=== PATIENT | female | born 1975 | race Caucasian/White ===

== ENCOUNTER 2017-03-28 00:01 | Emergency (ER) | payer OTHER ==
[~2017-03-28] VITALS: Ht 170.2 cm; Wt 90.5 kg
[~2017-03-28 00:01] MED LIST: HUMALOG; HUMOLOG; HUMULIN; HUMULIN R; METF500T7 PO; PNV1CAPS42 PO
[2017-03-28 00:18] LABS: GLUCOSE,POINT OF CARE 114 MG/DL (70-110)
[2017-03-28] MEDS ORDERED: ALBUTEROL SULFATE 5 MG/ML 20 ML NEB SOLN [BULK] NEB ONE (00:30)
[2017-03-28] MEDS ORDERED: IPRATROPIUM BROMIDE 0.5 MG/2.5 ML NEB SOLUTION NEB ONE (00:30)
[2017-03-28] MEDS ORDERED: 0.9% SODIUM CHLORIDE 15 ML NEB SOLUTION NEB ONE (00:33)
[2017-03-28 00:34] LABS: BASOPHILS % (AUTO) 0.7 % (0.0-2.0); EOSINOPHILS % (AUTO) 3.5 % (1.0-6.0); HEMATOCRIT 42.5 % (36-46); HEMOGLOBIN 14.3 g/dL (12.0-16.0); LYMPHOCYTES # (AUTO) 4.2 K/uL (1.0-4.8); LYMPHOCYTES % (AUTO) 24.3 % (22.0-44.0); MEAN CORPUSCULAR HGB CONC 33.6 G/dL (31.0-37.0); MEAN CORPUSCULAR VOLUME 95 fL (80-100); MONOCYTES # (AUTO) 0.6 K/uL (0.1-1.0); MONOCYTES % (AUTO) 3.4 % (2.0-9.0); NEUTROPHILS # (AUTO) 11.8 K/uL (1.8-7.7); NEUTROPHILS % (AUTO) 68.1 % (40.0-70.0); PLATELET COUNT (AUTO) 361 K/uL (150-450); RED BLOOD CELL COUNT(AUTO) 4.47 MIL/uL (4.00-5.20); RED CELL DISTRIBUTION WIDTH 14.1 % (11.5-14.5); WHITE BLOOD COUNT (AUTO) 17.3 K/uL (4.5-11.0)
[2017-03-28] MEDS ORDERED: 0.9% SODIUM CHLORIDE 5 ML NEB SOLUTION NEB ONE (00:47)
[2017-03-28 00:48] LABS: ANION GAP 6 mmol/L (8-16); CALCIUM, TOTAL 8.7 mg/dL (8.8-10.5); CARBON DIOXIDE 29 mmol/L (22-29); CHLORIDE 102 mmol/L (98-107); CREATININE 0.95 mg/dL (0.60-1.30); GLOMERULAR FILTR. RATE CALC > 60 mL/min (>60); POTASSIUM 3.8 mmol/L (3.5-5.1); SODIUM SERUM 137 mmol/L (136-145); UREA NITROGEN, BLOOD 9 mg/dL (7-18)
[2017-03-28 00:54] LABS: ALANINE AMINOTRANSFERASE 25 U/L (12-78); ALBUMIN 3.4 g/dL (3.4-5.0); ASPARTATE AMINOTRANSFERASE 17 U/L (15-37); BILIRUBIN,TOTAL 0.4 mg/dL (0.1-1.0); TOTAL PROTEIN, SERUM 7.6 g/dL (6.4-8.2)
[2017-03-28] MEDS ORDERED: ALBUTEROL SULFATE HFA 90 MCG/PUFF 8 GM INHALER IH ONE (03:30)
[2017-03-28] MEDS ORDERED: AZITHROMYCIN 250 MG TABLET PO ONE (03:30)
[2017-03-28 03:56] VITALS: BP 144/95
== END 2017-03-28 04:01 | disposition home or self-care (01) ==
LOC: EMS 00:04
DX: J18.9 Pneumonia, unspecified organism (principal); E11.9 Type 2 diabetes mellitus without complications; I10 Essential (primary) hypertension; F17.210 Nicotine dependence, cigarettes, uncomplicated; Z88.1 Allergy status to other antibiotic agents
CPT/HCPCS: 36415; 71020; 80053; 82962; 84703; 85025; 94644; 99285; 99406; J7611; J3535

== ENCOUNTER 2017-04-12 22:06 | Inpatient (IN) | payer OTHER ==
[~2017-04-12] VITALS: Ht 170.2 cm; Wt 117.4 kg
[2017-04-12 22:46] LABS: BASOPHILS % (AUTO) 0.4 % (0.0-2.0); EOSINOPHILS % (AUTO) 3.3 % (1.0-6.0); HEMATOCRIT 35.8 % (36-46); HEMOGLOBIN 11.9 g/dL (12.0-16.0); LYMPHOCYTES # (AUTO) 2.8 K/uL (1.0-4.8); MEAN CORPUSCULAR HEMOGLOBIN 31.6 pg (26.0-34.0); MEAN CORPUSCULAR HGB CONC 33.2 G/dL (31.0-37.0); MEAN CORPUSCULAR VOLUME 95 fL (80-100); MONOCYTES # (AUTO) 0.6 K/uL (0.1-1.0); MONOCYTES % (AUTO) 4.5 % (2.0-9.0); NEUTROPHILS # (AUTO) 10.1 K/uL (1.8-7.7); NEUTROPHILS % (AUTO) 71.8 % (40.0-70.0); PLATELET COUNT (AUTO) 337 K/uL (150-450); RED BLOOD CELL COUNT(AUTO) 3.76 MIL/uL (4.00-5.20); RED CELL DISTRIBUTION WIDTH 14.7 % (11.5-14.5)
[2017-04-12 22:56] LABS: PROTHROMBIN TIME 10.9 SEC (9.4-11.6)
[2017-04-12] MEDS ORDERED: ALBUTEROL SULFATE 2.5 MG/0.5 ML NEB SOLUTION NEB ONE (23:10)
[2017-04-12 23:15] LABS: CALCIUM, TOTAL 8.6 mg/dL (8.8-10.5); CREATININE 1.17 mg/dL (0.60-1.30); POTASSIUM 3.7 mmol/L (3.5-5.1)
[2017-04-12] MEDS ORDERED: MORPHINE SULFATE 4 MG/ML SYRINGE IVP ONE (23:15)
[2017-04-12] MEDS ORDERED: ONDANSETRON HCL 4 MG/2 ML VIAL IVP ONE (23:15)
[2017-04-12 23:21] LABS: ALBUMIN 3.1 g/dL (3.4-5.0); BILIRUBIN,TOTAL 0.4 mg/dL (0.1-1.0); TOTAL PROTEIN, SERUM 7.4 g/dL (6.4-8.2)
[2017-04-12] MEDS ORDERED: HYDROCODONE/ACETAMINOPHEN 5-325 MG TABLET PO ONE (23:30)
[2017-04-13] MEDS ORDERED: CefTRIAXone 1 GM/DEXTROSE 50 ML IV ONE (00:45)
[2017-04-13] MEDS ORDERED: AZITHROMYCIN 500 MG/NS 250 ML IV ONE (00:45)
[2017-04-13] MEDS ORDERED: FUROSEMIDE 40 MG/4 ML VIAL IVP ONE (00:45)
[2017-04-13] MEDS ORDERED: ACETAMINOPHEN 325 MG TABLET PO PRN ×2 (01:30→05:45)
[2017-04-13] MEDS ORDERED: 0.9% SODIUM CHLORIDE 10 ML SYRINGE IVP PRN ×2 (01:30→05:45)
[2017-04-13] MEDS ORDERED: ONDANSETRON HCL 4 MG/2 ML VIAL IVP PRN ×2 (01:30→05:45)
[2017-04-13 01:46] LABS: APPEARANCE,URINE CLEAR (CLEAR); GLUCOSE, URINE (UA) >=1000 mg/dL (NEGATIVE); KETONES,URINE NEGATIVE (NEGATIVE); LEUKOCYTE ESTERASE ,URINE NEGATIVE (NEGATIVE); OCCULT BLOOD,URINE NEGATIVE (NEGATIVE); PROTEIN,URINE POS 1+ (NEGATIVE)
[2017-04-13 01:57] LABS: RBC,URINE None Seen /HPF (0-2); WBC,URINE None Seen /HPF (0-5)
[2017-04-13] MEDS ORDERED: MAGNESIUM HYDROXIDE SUSPENSION 30 ML UDCUP PO PRN (05:45)
[2017-04-13] MEDS ORDERED: OxyCODONE HCL/ACETAMINOPHEN 5-325 MG TABLET PO PRN ×2 (05:45)
[2017-04-13 08:24] VITALS: BP 145/106
[2017-04-13] MEDS: PANTOPRAZOLE SODIUM 40 MG/VIAL IVP SCH (08:59)
[2017-04-13] MEDS: DOCUSATE SODIUM 100 MG CAPSULE PO SCH ×2 (08:59→20:24)
[2017-04-13] MEDS: FUROSEMIDE 40 MG/4 ML VIAL IVP SCH (08:59)
[2017-04-13] MEDS ORDERED: INFLUENZA VIRUS VACCINE QVS 2017-18 (3YR+)/PF 60 MCG/0.5 ML SYRINGE IM ONE (10:45)
[2017-04-13 12:07] VITALS: BP 154/98
[2017-04-13] MEDS ORDERED: ALBUTEROL SULFATE 2.5 MG/0.5 ML NEB SOLUTION NEB PRN (14:45)
[2017-04-13] MEDS: MethylPREDNISolone SOD SUCC 125 MG/2 ML VIAL IVP SCH (14:57)
[2017-04-13 15:53] VITALS: BP 147/112
[2017-04-13] MEDS: ALBUTEROL SULFATE 2.5 MG/0.5 ML NEB SOLUTION NEB SCH ×3 (15:53→22:44)
[2017-04-13] MEDS: IPRATROPIUM BROMIDE 0.5 MG/2.5 ML NEB SOLUTION NEB SCH ×3 (15:53→22:44)
[2017-04-13 20:38] VITALS: BP 152/96
[2017-04-13 20:47] LABS: INFLUENZA TYPE B NEGATIVE FOR TYPE B (NEGATIVE)
[2017-04-13] MEDS ORDERED: FUROSEMIDE 20 MG/2 ML VIAL IVP ONE (21:00)
[2017-04-14] MEDS: MethylPREDNISolone SOD SUCC 125 MG/2 ML VIAL IVP SCH ×3 (00:07→17:33)
[2017-04-14 00:44] VITALS: BP 149/94
[2017-04-14] MEDS: ALBUTEROL SULFATE 2.5 MG/0.5 ML NEB SOLUTION NEB SCH ×6 (02:57→22:32)
[2017-04-14] MEDS: IPRATROPIUM BROMIDE 0.5 MG/2.5 ML NEB SOLUTION NEB SCH ×6 (02:57→22:32)
[2017-04-14] MEDS ORDERED: SODIUM CHLORIDE 0.9% 500 ML IV ONE (03:37)
[2017-04-14] MEDS: CefTRIAXone 1 GM/DEXTROSE 50 ML IV SCH (05:02)
[2017-04-14 05:49] VITALS: BP 148/95
[2017-04-14 06:48] LABS: BASOPHILS % (AUTO) 0.1 % (0.0-2.0); EOSINOPHILS % (AUTO) 0 % (1.0-6.0); HEMATOCRIT 34.8 % (36-46); HEMOGLOBIN 11.6 g/dL (12.0-16.0); LYMPHOCYTES # (AUTO) 0.9 K/uL (1.0-4.8); LYMPHOCYTES % (AUTO) 5.7 % (22.0-44.0); MEAN CORPUSCULAR HEMOGLOBIN 31.8 pg (26.0-34.0); MEAN CORPUSCULAR HGB CONC 33.3 G/dL (31.0-37.0); MEAN CORPUSCULAR VOLUME 95 fL (80-100); MONOCYTES # (AUTO) 0.2 K/uL (0.1-1.0); NEUTROPHILS # (AUTO) 14.7 K/uL (1.8-7.7); PLATELET COUNT (AUTO) 323 K/uL (150-450); RED BLOOD CELL COUNT(AUTO) 3.65 MIL/uL (4.00-5.20); RED CELL DISTRIBUTION WIDTH 14.5 % (11.5-14.5); WHITE BLOOD COUNT (AUTO) 15.8 K/uL (4.5-11.0)
[2017-04-14 06:56] LABS: NEUTROPHILS % (AUTO) 93.2 % (40.0-70.0)
[2017-04-14 07:18] LABS: ANION GAP 9 mmol/L (8-16); CALCIUM, TOTAL 8.7 mg/dL (8.8-10.5); CARBON DIOXIDE 27 mmol/L (22-29); CHLORIDE 101 mmol/L (98-107); CREATININE 0.99 mg/dL (0.60-1.30); GLOMERULAR FILTR. RATE CALC > 60 mL/min (>60); POTASSIUM 3.9 mmol/L (3.5-5.1); SODIUM SERUM 137 mmol/L (136-145); UREA NITROGEN, BLOOD 16 mg/dL (7-18)
[2017-04-14] MEDS: PANTOPRAZOLE SODIUM 40 MG/VIAL IVP SCH (08:36)
[2017-04-14] MEDS: FUROSEMIDE 40 MG/4 ML VIAL IVP SCH (08:36)
[2017-04-14] MEDS: DOCUSATE SODIUM 100 MG CAPSULE PO SCH ×2 (08:36→20:54)
[2017-04-14 08:44] VITALS: BP 132/78
[2017-04-14 08:54] LABS: CREATINE KINASE MB 1.5 ng/mL (0-5); CREATINE KINASE, TOTAL 88 U/L (26-192)
[2017-04-14 11:28] VITALS: BP_SYST 132; BP_SYST 133; BP_DIAS 77
[2017-04-14] MEDS: CARVEDILOL 3.125 MG TABLET PO SCH ×2 (14:02→20:54)
[2017-04-14 15:56] VITALS: BP 133/75
[2017-04-14] MEDS: FUROSEMIDE 20 MG/2 ML VIAL IVP SCH (17:33)
[2017-04-14 20:47] VITALS: BP 137/75
[2017-04-14] MEDS: NICOTINE 7 MG/24 HOUR PATCH TD SCH (20:55)
[2017-04-15 00:40] VITALS: BP 142/90
[2017-04-15] MEDS: MethylPREDNISolone SOD SUCC 125 MG/2 ML VIAL IVP SCH ×4 (01:00→16:45)
[2017-04-15] MEDS: FUROSEMIDE 20 MG/2 ML VIAL IVP SCH ×2 (01:01→08:52)
[2017-04-15] MEDS: IPRATROPIUM BROMIDE 0.5 MG/2.5 ML NEB SOLUTION NEB SCH ×6 (03:01→22:53)
[2017-04-15] MEDS: ALBUTEROL SULFATE 2.5 MG/0.5 ML NEB SOLUTION NEB SCH ×6 (03:01→22:53)
[2017-04-15 04:44] VITALS: BP 134/95
[2017-04-15] MEDS ORDERED: SODIUM CHLORIDE 0.9% 250 ML IV ONE (04:44)
[2017-04-15] MEDS: CefTRIAXone 1 GM/DEXTROSE 50 ML IV SCH (04:47)
[2017-04-15 06:41] LABS: B-TYPE NATRIURETIC PEPTIDE 590 pg/mL (0-100)
[2017-04-15 06:59] LABS: ANION GAP 8 mmol/L (8-16); CALCIUM, TOTAL 8.6 mg/dL (8.8-10.5); CARBON DIOXIDE 27 mmol/L (22-29); CHLORIDE 101 mmol/L (98-107); CREATINE KINASE MB 1.9 ng/mL (0-5); CREATINE KINASE, TOTAL 80 U/L (26-192); CREATININE 1.03 mg/dL (0.60-1.30); GLOMERULAR FILTR. RATE CALC 60 mL/min (>60); POTASSIUM 4.1 mmol/L (3.5-5.1); SODIUM SERUM 136 mmol/L (136-145); THYROID STIMULATING HORMONE 0.36 uIU/mL (0.36-3.74); UREA NITROGEN, BLOOD 22 mg/dL (7-18)
[2017-04-15 07:57] VITALS: BP 142/97
[2017-04-15 08:25] LABS: EOSINOPHILS % (AUTO) 0 % (1.0-6.0); HEMATOCRIT 34.4 % (36-46); HEMOGLOBIN 11.6 g/dL (12.0-16.0); LYMPHOCYTES # (AUTO) 1.3 K/uL (1.0-4.8); LYMPHOCYTES % (AUTO) 4.6 % (22.0-44.0); MEAN CORPUSCULAR HEMOGLOBIN 32.2 pg (26.0-34.0); MEAN CORPUSCULAR HGB CONC 33.8 G/dL (31.0-37.0); MEAN CORPUSCULAR VOLUME 95 fL (80-100); MONOCYTES # (AUTO) 0.4 K/uL (0.1-1.0); MONOCYTES % (AUTO) 1.5 % (2.0-9.0); NEUTROPHILS # (AUTO) 27.1 K/uL (1.8-7.7); PLATELET COUNT (AUTO) 332 K/uL (150-450); RED BLOOD CELL COUNT(AUTO) 3.61 MIL/uL (4.00-5.20); RED CELL DISTRIBUTION WIDTH 14.4 % (11.5-14.5); WHITE BLOOD COUNT (AUTO) 28.9 K/uL (4.5-11.0)
[2017-04-15 08:28] LABS: NEUTROPHILS % (AUTO) 93.9 % (40.0-70.0)
[2017-04-15 08:40] LABS: CALCIUM, TOTAL 8.6 mg/dL (8.8-10.5); CREATININE 1.06 mg/dL (0.60-1.30); POTASSIUM 4.1 mmol/L (3.5-5.1)
[2017-04-15] MEDS: CARVEDILOL 3.125 MG TABLET PO SCH ×2 (08:51→20:20)
[2017-04-15] MEDS: PANTOPRAZOLE SODIUM 40 MG/VIAL IVP SCH (08:51)
[2017-04-15] MEDS: NICOTINE 7 MG/24 HOUR PATCH TD SCH (08:51)
[2017-04-15] MEDS: DOCUSATE SODIUM 100 MG CAPSULE PO SCH ×2 (08:52→20:15)
[2017-04-15 11:42] VITALS: BP 136/83
[2017-04-15 15:13] VITALS: BP 146/98
[2017-04-15 20:48] VITALS: BP 138/107
[2017-04-16] MEDS: MethylPREDNISolone SOD SUCC 125 MG/2 ML VIAL IVP SCH ×3 (00:14→16:19)
[2017-04-16 00:48] VITALS: BP 152/79
[2017-04-16] MEDS: IPRATROPIUM BROMIDE 0.5 MG/2.5 ML NEB SOLUTION NEB SCH ×6 (03:21→22:57)
[2017-04-16] MEDS: ALBUTEROL SULFATE 2.5 MG/0.5 ML NEB SOLUTION NEB SCH ×6 (03:21→22:57)
[2017-04-16 04:00] VITALS: BP 137/95
[2017-04-16] MEDS: CefTRIAXone 1 GM/DEXTROSE 50 ML IV SCH (05:33)
[2017-04-16 07:33] VITALS: BP 145/106
[2017-04-16 08:36] LABS: BASOPHILS # (AUTO) 0.03 K/uL (0.00-0.20); BASOPHILS % (AUTO) 0.1 % (0.0-2.0); EOSINOPHILS # (AUTO) 0.01 K/uL (0.00-0.70); EOSINOPHILS % (AUTO) 0.03 % (1.0-6.0); HEMATOCRIT 35.7 % (36-46); HEMOGLOBIN 11.7 g/dL (12.0-16.0); LYMPHOCYTES # (AUTO) 1.5 K/uL (1.0-4.8); LYMPHOCYTES % (AUTO) 6.3 % (22.0-44.0); MEAN CORPUSCULAR HEMOGLOBIN 31.6 pg (26.0-34.0); MEAN CORPUSCULAR HGB CONC 32.8 G/dL (31.0-37.0); MEAN CORPUSCULAR VOLUME 96 fL (80-100); MONOCYTES # (AUTO) 0.4 K/uL (0.1-1.0); MONOCYTES % (AUTO) 1.7 % (2.0-9.0); NEUTROPHILS # (AUTO) 21.9 K/uL (1.8-7.7); PLATELET COUNT (AUTO) 309 K/uL (150-450); RED BLOOD CELL COUNT(AUTO) 3.71 MIL/uL (4.00-5.20); RED CELL DISTRIBUTION WIDTH 14.7 % (11.5-14.5); WHITE BLOOD COUNT (AUTO) 23.9 K/uL (4.5-11.0)
[2017-04-16 08:37] LABS: NEUTROPHILS % (AUTO) 91.9 % (40.0-70.0)
[2017-04-16 08:47] LABS: CALCIUM, TOTAL 8.7 mg/dL (8.8-10.5); CREATININE 1.15 mg/dL (0.60-1.30); POTASSIUM 4.4 mmol/L (3.5-5.1)
[2017-04-16] MEDS: DOCUSATE SODIUM 100 MG CAPSULE PO SCH ×2 (08:58→20:36)
[2017-04-16] MEDS: PANTOPRAZOLE SODIUM 40 MG/VIAL IVP SCH (08:59)
[2017-04-16] MEDS: FUROSEMIDE 40 MG/4 ML VIAL IVP SCH (08:59)
[2017-04-16] MEDS ORDERED: SESTAMIBI TC99M/UD ISOTOPE 1 EA INJ INJ ONE (09:30)
[2017-04-16 10:58] VITALS: BP 143/92
[2017-04-16 13:19] LABS: ORGANISM ID Not indicated.
[2017-04-16] MEDS: CARVEDILOL 3.125 MG TABLET PO SCH ×2 (15:10→20:36)
[2017-04-16] MEDS: NICOTINE 7 MG/24 HOUR PATCH TD SCH (15:10)
[2017-04-16 15:48] VITALS: BP 142/104
[2017-04-16 20:43] VITALS: BP 145/100
[2017-04-17] VITALS (8 sets, daily range): BP systolic 141–162; BP diastolic 74–111
[2017-04-17] MEDS: MethylPREDNISolone SOD SUCC 125 MG/2 ML VIAL IVP SCH ×3 (00:14→15:42)
[2017-04-17] MEDS: ALBUTEROL SULFATE 2.5 MG/0.5 ML NEB SOLUTION NEB SCH ×3 (03:07→11:40)
[2017-04-17] MEDS: IPRATROPIUM BROMIDE 0.5 MG/2.5 ML NEB SOLUTION NEB SCH ×4 (03:07→20:35)
[2017-04-17] MEDS: CefTRIAXone 1 GM/DEXTROSE 50 ML IV SCH (05:04)
[2017-04-17] MEDS: DOCUSATE SODIUM 100 MG CAPSULE PO SCH ×2 (09:00→20:46)
[2017-04-17] MEDS: CARVEDILOL 3.125 MG TABLET PO SCH ×2 (09:00→20:46)
[2017-04-17] MEDS: PANTOPRAZOLE SODIUM 40 MG/VIAL IVP SCH (09:09)
[2017-04-17] MEDS: FUROSEMIDE 40 MG/4 ML VIAL IVP SCH (09:10)
[2017-04-17] MEDS: OXYGEN THERAPY IH SCH ×2 (09:13→20:35)
[2017-04-17] MEDS: NICOTINE 7 MG/24 HOUR PATCH TD SCH (09:13)
[2017-04-17] MEDS ORDERED: SESTAMIBI TC99M/UD ISOTOPE 1 EA INJ INJ ONE (13:40)
[2017-04-17] MEDS: LEVALBUTEROL HCL 0.63 MG/3 ML NEB SOLUTION NEB SCH (20:35)
[2017-04-17] MEDS: BENZONATATE 100 MG CAPSULE PO SCH (20:46)
[2017-04-18 00:19] VITALS: BP 156/87
[2017-04-18] MEDS: MethylPREDNISolone SOD SUCC 125 MG/2 ML VIAL IVP SCH ×2 (00:33→08:24)
[2017-04-18] MEDS: LEVALBUTEROL HCL 0.63 MG/3 ML NEB SOLUTION NEB SCH ×3 (02:04→13:34)
[2017-04-18] MEDS: IPRATROPIUM BROMIDE 0.5 MG/2.5 ML NEB SOLUTION NEB SCH ×3 (02:04→13:34)
[2017-04-18 04:27] VITALS: BP 137/97
[2017-04-18] MEDS: CefTRIAXone 1 GM/DEXTROSE 50 ML IV SCH (04:27)
[2017-04-18 06:42] LABS: EOSINOPHILS % (AUTO) 0 % (1.0-6.0); HEMATOCRIT 36.6 % (36-46); HEMOGLOBIN 12.1 g/dL (12.0-16.0); LYMPHOCYTES # (AUTO) 1.5 K/uL (1.0-4.8); LYMPHOCYTES % (AUTO) 8.6 % (22.0-44.0); MEAN CORPUSCULAR HEMOGLOBIN 31.3 pg (26.0-34.0); MEAN CORPUSCULAR HGB CONC 33.1 G/dL (31.0-37.0); MEAN CORPUSCULAR VOLUME 94 fL (80-100); MONOCYTES # (AUTO) 0.3 K/uL (0.1-1.0); MONOCYTES % (AUTO) 1.7 % (2.0-9.0); NEUTROPHILS # (AUTO) 16.1 K/uL (1.8-7.7); PLATELET COUNT (AUTO) 280 K/uL (150-450); RED BLOOD CELL COUNT(AUTO) 3.88 MIL/uL (4.00-5.20); RED CELL DISTRIBUTION WIDTH 14.5 % (11.5-14.5); WHITE BLOOD COUNT (AUTO) 17.9 K/uL (4.5-11.0)
[2017-04-18 06:47] LABS: NEUTROPHILS % (AUTO) 89.7 % (40.0-70.0)
[2017-04-18 07:33] LABS: CALCIUM, TOTAL 8.1 mg/dL (8.8-10.5); CREATININE 1.06 mg/dL (0.60-1.30); POTASSIUM 4.6 mmol/L (3.5-5.1)
[2017-04-18 07:39] VITALS: BP 132/93
[2017-04-18] MEDS: OXYGEN THERAPY IH SCH (08:00)
[2017-04-18] MEDS: CARVEDILOL 3.125 MG TABLET PO SCH (08:22)
[2017-04-18] MEDS: FUROSEMIDE 40 MG/4 ML VIAL IVP SCH (08:22)
[2017-04-18] MEDS: BENZONATATE 100 MG CAPSULE PO SCH (08:22)
[2017-04-18] MEDS: PANTOPRAZOLE SODIUM 40 MG/VIAL IVP SCH (08:22)
[2017-04-18] MEDS: NICOTINE 7 MG/24 HOUR PATCH TD SCH (08:22)
[2017-04-18] MEDS: DOCUSATE SODIUM 100 MG CAPSULE PO SCH (08:22)
[2017-04-18] MEDS ORDERED: CARV6 PO ×2 (11:39→12:13)
[2017-04-18] MEDS ORDERED: FURO40 PO (11:39)
[2017-04-18] MEDS ORDERED: LISI-660 PO (11:40)
[2017-04-18 11:54] VITALS: BP 131/87
[2017-04-18] MEDS ORDERED: AMOX1TAB16 PO (12:10)
[2017-04-18] MEDS ORDERED: METF500T4 PO ×2 (12:11)
[2017-04-18] MEDS ORDERED: PRED20 PO ×2 (12:12)
== END 2017-04-18 13:45 | disposition home or self-care (01) | DRG 194 ==
LOC: EMS 22:07 → 5S 04-13 06:14
PROVIDERS: ADMIT Internal Medicine; ATTEND Internal Medicine
PROC: 3E0234Z Introduction of Serum, Toxoid and Vaccine into Muscle, Percutaneous Approach (ICD-10-PCS; principal; 2017-04-13)
DX: I11.0 Hypertensive heart disease with heart failure (principal); J18.9 Pneumonia, unspecified organism; J44.0 Chronic obstructive pulmonary disease with (acute) lower respiratory infection; J45.901 Unspecified asthma with (acute) exacerbation; J44.1 Chronic obstructive pulmonary disease with (acute) exacerbation; Z68.41 Body mass index [BMI] 40.0-44.9, adult; I50.23 Acute on chronic systolic (congestive) heart failure; E66.01 Morbid (severe) obesity due to excess calories; E11.9 Type 2 diabetes mellitus without complications; F17.210 Nicotine dependence, cigarettes, uncomplicated; R09.02 Hypoxemia; Z82.49 Family history of ischemic heart disease and other diseases of the circulatory system; Z83.3 Family history of diabetes mellitus; Z88.8 Allergy status to other drugs, medicaments and biological substances; Z88.0 Allergy status to penicillin; T38.0X5A Adverse effect of glucocorticoids and synthetic analogues, initial encounter; Y92.89 Other specified places as the place of occurrence of the external cause; Z23 Encounter for immunization
CPT/HCPCS: 71250; 78452; 80307; 83735; 84145; 84443; 87040; 87449; 87804; 87899; 90471; 93005; 93017; 93306; 94060; 94640; 94660; 96365; 96366; 96368; 96375; 96376; 99285; A9500; C9113; J0456; J0696; J1940; J2270; J2405; J2930; J7040; J7050

== ENCOUNTER 2017-11-21 21:43 | Emergency (ER) | payer OTHER ==
[~2017-11-21] VITALS: Ht 170.2 cm; Wt 113.6 kg
[~2017-11-21 21:43] MED LIST changes: +AMOX1TAB16 PO; +CARV6 PO; +FURO40 PO; -HUMALOG; -HUMOLOG; -HUMULIN; -HUMULIN R; +LISI-660 PO; +METF500T6 PO; -METF500T7 PO; -PNV1CAPS42 PO; +PRED20 PO
[2017-11-21 21:55] LABS: GLUCOSE,POINT OF CARE 353 MG/DL (70-110)
[2017-11-21 22:54] LABS: BASOPHILS % (AUTO) 1.3 % (0.0-2.0); EOSINOPHILS % (AUTO) 2.9 % (1.0-6.0); HEMATOCRIT 35.4 % (36-46); HEMOGLOBIN 11.6 g/dL (12.0-16.0); LYMPHOCYTES % (AUTO) 21.8 % (22.0-44.0); MEAN CORPUSCULAR HEMOGLOBIN 30.1 pg (26.0-34.0); MEAN CORPUSCULAR HGB CONC 32.8 G/dL (31.0-37.0); MEAN CORPUSCULAR VOLUME 92 fL (80-100); MONOCYTES # (AUTO) 0.5 K/uL (0.1-1.0); MONOCYTES % (AUTO) 5.4 % (2.0-9.0); NEUTROPHILS # (AUTO) 6.2 K/uL (1.8-7.7); NEUTROPHILS % (AUTO) 68.6 % (40.0-70.0); RED BLOOD CELL COUNT(AUTO) 3.86 MIL/uL (4.00-5.20); RED CELL DISTRIBUTION WIDTH 17.4 % (11.5-14.5)
[2017-11-21 22:59] LABS: CALCIUM, TOTAL 8.1 mg/dL (8.8-10.5); CREATININE 1.08 mg/dL (0.60-1.30); POTASSIUM 3.4 mmol/L (3.5-5.1)
[2017-11-21 23:09] LABS: BILIRUBIN,TOTAL 1.1 mg/dL (0.1-1.0); TOTAL PROTEIN, SERUM 6.9 g/dL (6.4-8.2)
[2017-11-21 23:14] LABS: PLATELET COUNT (AUTO) 55 K/uL (150-450); PLATELET MORPHOLOGY COMMENT LARGE PLTS PRESENT
[2017-11-22] MEDS ORDERED: FUROSEMIDE 20 MG TABLET PO ONE (00:15)
[2017-11-22 01:48] VITALS: BP 126/88
== END 2017-11-22 01:58 | disposition home or self-care (01) ==
LOC: EMS 21:44
DX: I11.0 Hypertensive heart disease with heart failure (principal); I50.9 Heart failure, unspecified; E11.9 Type 2 diabetes mellitus without complications; Z88.1 Allergy status to other antibiotic agents
CPT/HCPCS: 93005; 99285

== ENCOUNTER 2018-06-04 18:20 | Emergency (ER) | payer OTHER ==
[~2018-06-04] VITALS: Ht 170.2 cm; Wt 118.2 kg
[~2018-06-04 18:20] MED LIST changes: -AMOX1TAB16 PO; -METF500T6 PO; -PRED20 PO
[2018-06-04 18:35] LABS: GLUCOSE,POINT OF CARE 417 MG/DL (70-110)
[2018-06-04 21:03] LABS: BASOPHILS % (AUTO) 0.9 % (0.0-2.0); EOSINOPHILS % (AUTO) 0.7 % (1.0-6.0); HEMATOCRIT 42.4 % (36-46); HEMOGLOBIN 14.1 g/dL (12.0-16.0); LYMPHOCYTES # (AUTO) 2.4 K/uL (1.0-4.8); LYMPHOCYTES % (AUTO) 14.2 % (22.0-44.0); MEAN CORPUSCULAR HEMOGLOBIN 28.6 pg (26.0-34.0); MEAN CORPUSCULAR HGB CONC 33.1 G/dL (31.0-37.0); MEAN CORPUSCULAR VOLUME 86 fL (80-100); MONOCYTES # (AUTO) 1.1 K/uL (0.1-1.0); MONOCYTES % (AUTO) 6.7 % (2.0-9.0); NEUTROPHILS % (AUTO) 77.5 % (40.0-70.0); PLATELET COUNT (AUTO) 236 K/uL (150-450); RED BLOOD CELL COUNT(AUTO) 4.91 MIL/uL (4.00-5.20); RED CELL DISTRIBUTION WIDTH 14.7 % (11.5-14.5)
[2018-06-04 21:14] LABS: ANION GAP 8 mmol/L (8-16); CALCIUM, TOTAL 8.9 mg/dL (8.8-10.5); CARBON DIOXIDE 27 mmol/L (22-29); CHLORIDE 97 mmol/L (98-107); CREATININE 0.74 mg/dL (0.60-1.30); GLOMERULAR FILTR. RATE CALC > 60 mL/min (>60); GLUCOSE,RANDOM 352 mg/dL (70-110); SODIUM SERUM 132 mmol/L (136-145); UREA NITROGEN, BLOOD 12 mg/dL (7-18)
[2018-06-04] MEDS ORDERED: POVIDONE-IODINE 10% 15 ML SOLUTION UD ONE (21:26)
[2018-06-04 21:27] LABS: ALANINE AMINOTRANSFERASE 128 U/L (12-78); ALBUMIN 3.5 g/dL (3.4-5.0); ALKALINE PHOSPHATASE 171 U/L (46-116); ASPARTATE AMINOTRANSFERASE 151 U/L (15-37); BILIRUBIN,TOTAL 0.4 mg/dL (0.1-1.0); HCG,QUANTITATIVE < 1 mIU/mL (0-6); TOTAL PROTEIN, SERUM 8.4 g/dL (6.4-8.2)
[2018-06-04] MEDS ORDERED: LIDOCAINE 1% 10 ML VIAL INJ ONE (21:30)
[2018-06-04] MEDS ORDERED: DOXYCYCLINE HYCLATE 100 MG in DEXTROSE 5%-WATER 100 ML IV ONE (22:00)
[2018-06-04] MEDS ORDERED: CefTRIAXone 1 GM/DEXTROSE 50 ML IV ONE (22:00)
[2018-06-04] MEDS ORDERED: SODIUM CHLORIDE 0.9% 1,000 ML IV ONE (22:30)
[2018-06-04] MEDS ORDERED: INSULIN REGULAR, HUMAN 100 UNITS/ML SQ ONE (22:30)
[2018-06-05] MEDS ORDERED: INSULIN REGULAR, HUMAN 100 UNITS/ML IVP ONE
[2018-06-05 00:04] LABS: GLUCOSE,POINT OF CARE 493 MG/DL (70-110)
[2018-06-05 01:03] LABS: GLUCOSE,POINT OF CARE 388 MG/DL (70-110)
[2018-06-05 01:20] VITALS: BP 128/79
== END 2018-06-05 01:21 | disposition home or self-care (01) ==
LOC: EMS 18:21
DX: N76.4 Abscess of vulva (principal); I11.0 Hypertensive heart disease with heart failure; I50.9 Heart failure, unspecified; E11.9 Type 2 diabetes mellitus without complications; Z88.1 Allergy status to other antibiotic agents; Z79.899 Other long term (current) drug therapy
CPT/HCPCS: 56405; 80053; 82962; 84702; 85025; 96365; 96367; 96372; 96375; 99284; J0696; J1815 ×2; J3490 ×2; J7030; J7060

== ENCOUNTER 2020-12-11 21:59 | Emergency (ER) | payer OTHER ==
[~2020-12-11] VITALS: Ht 172.7 cm; Wt 100.0 kg
[~2020-12-11 21:59] MED LIST changes: +ATOR10TA84 PO; +BUPR-49 PO; +CEPH500C3 PO; +CLIN300C3 PO; -FURO40 PO; -LISI-660 PO; +LISI-892 PO; +SPIR-37 PO; +TRAM50TA4 PO
[2020-12-11] MEDS ORDERED: FURO20 PO (22:10)
[2020-12-11] MEDS ORDERED: LOSA50TA37 PO (22:10)
[2020-12-11] MEDS ORDERED: METO-558 PO (22:10)
[2020-12-11 23:15] LABS: COVID AG,FIA SOURCE NASOPHARYNGEAL
[2020-12-11] MEDS ORDERED: ACETAMINOPHEN 500 MG TABLET PO ONE (23:45)
[2020-12-11] MEDS ORDERED: SODIUM CHLORIDE 0.9% 1,000 ML IV ONE (23:45)
[2020-12-11 23:48] LABS: INFLUENZA TYPE A NEGATIVE FOR TYPE A (NEGATIVE); INFLUENZA TYPE B NEGATIVE FOR TYPE B (NEGATIVE)
[2020-12-12] MEDS ORDERED: KETOROLAC TROMETHAMINE 30 MG/ML VIAL IVP ONE (00:45)
[2020-12-12 01:30] VITALS: BP 113/69
== END 2020-12-12 04:00 | disposition home or self-care (01) ==
LOC: EMS 22:03
DX: R05 Cough (principal); R51.9 Headache, unspecified; R50.9 Fever, unspecified; I11.0 Hypertensive heart disease with heart failure; I50.9 Heart failure, unspecified; E11.9 Type 2 diabetes mellitus without complications; Z20.822 Contact with and (suspected) exposure to COVID-19; Z88.8 Allergy status to other drugs, medicaments and biological substances; Z79.899 Other long term (current) drug therapy
CPT/HCPCS: 82962; 87426; 87804; 96361; 96374; 99283; J1885; J7030; U0003

== ENCOUNTER 2021-12-29 19:44 | Inpatient (IN) | payer OTHER ==
[~2021-12-29] VITALS: Ht 172.7 cm; Wt 113.9 kg
[~2021-12-29 19:44] MED LIST changes: -ATOR10TA84 PO; -BUPR-49 PO; -CARV6 PO; -CEPH500C3 PO; -CLIN300C3 PO; +FURO20 PO; -LISI-892 PO; +LOSA-382 PO; +METO-558 PO; -TRAM50TA4 PO
[2021-12-29] MEDS ORDERED: FURO40 PO (19:54)
[2021-12-29] MEDS ORDERED: ALBUTEROL SULFATE 2.5 MG/0.5 ML NEB SOLUTION NEB ONE (20:15)
[2021-12-29] MEDS ORDERED: IPRATROPIUM BROMIDE 0.5 MG/2.5 ML NEB SOLUTION NEB ONE (20:15)
[2021-12-29 20:21] LABS: GLUCOSE,POINT OF CARE 127 MG/DL (70-110)
[2021-12-29] MEDS ORDERED: FUROSEMIDE 40 MG/4 ML VIAL IVP ONE (20:30)
[2021-12-29 20:40] LABS: COVID AG,FIA SOURCE NASAL SWAB
[2021-12-29 20:55] LABS: BASOPHILS % (AUTO) 0.4 % (0.0-2.0); EOSINOPHILS % (AUTO) 0 % (1.0-6.0); HEMATOCRIT 37.7 % (36-46); LYMPHOCYTES # (AUTO) 0.8 K/uL (1.0-4.8); LYMPHOCYTES % (AUTO) 9.9 % (22.0-44.0); MEAN CORPUSCULAR HGB CONC 31.9 G/dL (31.0-37.0); MEAN CORPUSCULAR VOLUME 85 fL (80-100); MONOCYTES # (AUTO) 0.5 K/uL (0.1-1.0); MONOCYTES % (AUTO) 5.8 % (2.0-9.0); NEUTROPHILS # (AUTO) 6.9 K/uL (1.8-7.7); NEUTROPHILS % (AUTO) 83.9 % (40.0-70.0); PLATELET COUNT (AUTO) 148 K/uL (150-450); RED BLOOD CELL COUNT(AUTO) 4.46 MIL/uL (4.00-5.20); RED CELL DISTRIBUTION WIDTH 19.7 % (11.5-14.5)
[2021-12-29 21:05] LABS: ANION GAP 6 mmol/L (8-16); CALCIUM, TOTAL 7.8 mg/dL (8.8-10.5); CARBON DIOXIDE 27 mmol/L (22-29); CHLORIDE 98 mmol/L (98-107); CREATININE 1.04 mg/dL (0.60-1.30); GLUCOSE,RANDOM 147 mg/dL (70-110); POTASSIUM 3.3 mmol/L (3.5-5.1); SODIUM SERUM 131 mmol/L (136-145); UREA NITROGEN, BLOOD 10 mg/dL (7-18)
[2021-12-29 21:08] LABS: GLOMERULAR FILTR. RATE CALC > 60 mL/min (>60)
[2021-12-29 21:17] LABS: ALANINE AMINOTRANSFERASE 18 U/L (12-78); ALBUMIN 2.8 g/dL (3.4-5.0); ALKALINE PHOSPHATASE 90 U/L (46-116); ASPARTATE AMINOTRANSFERASE 41 U/L (15-37); BILIRUBIN,TOTAL 0.9 mg/dL (0.1-1.0); HCG,QUANTITATIVE < 1 mIU/mL (0-6)
[2021-12-29 21:19] LABS: B-TYPE NATRIURETIC PEPTIDE 547 pg/mL (0-100)
[2021-12-29] MEDS ORDERED: HEPARIN SODIUM,PORCINE 5,000 UNITS/ML VIAL IVP ONE ×2 (21:45→23:45)
[2021-12-29] MEDS ORDERED: ONDANSETRON HCL 4 MG/2 ML VIAL IVP PRN (21:45)
[2021-12-29] MEDS ORDERED: HEPARIN SODIUM,PORCINE 5,000 UNITS/ML VIAL IVP PRN ×6 (21:45→22:04)
[2021-12-29] MEDS ORDERED: MORPHINE SULFATE 2 MG/ML SYRINGE IVP PRN (21:45)
[2021-12-29] MEDS ORDERED: HEPARIN SODIUM 25000 UNITS/D5W 250 ML IV PRN ×2 (21:45)
[2021-12-29] MEDS ORDERED: ASPIRIN 325 MG TABLET PO ONE (22:00)
[2021-12-29] MEDS ORDERED: INSULIN LISPRO 100 UNITS/ML SQ PRN (22:00)
[2021-12-29] MEDS ORDERED: ATORVASTATIN CALCIUM 40 MG TABLET PO ONE (22:00)
[2021-12-29] MEDS ORDERED: DEXTROSE 50%-WATER 25 GM/50 ML SYRINGE IVP PRN (22:00)
[2021-12-29 22:12] LABS: CREATINE KINASE, TOTAL ONLY 363 U/L (26-192)
[2021-12-29] MEDS: MethylPREDNISolone SOD SUCC 40 MG/ML VIAL IVP SCH (22:12)
[2021-12-29] MEDS: CefTRIAXone 1 GM/DEXTROSE 50 ML IV SCH (22:13)
[2021-12-29] MEDS ORDERED: POTASSIUM CHL 10 MEQ/WATER 50 ML IV PRN (22:15)
[2021-12-29 22:43] LABS: INR 1.2 (0.9-1.1)
[2021-12-29] MEDS: INSULIN GLARGINE,HUM.REC.ANLOG 100 UNITS/ML SQ SCH (22:44)
[2021-12-29 22:52] LABS: AMPHET/METH SCREEN,URINE NEGATIVE (NEGATIVE); BARBITURATE SCREEN, URINE NEGATIVE (NEGATIVE); BENZODIAZEPINES SCREEN,URINE NEGATIVE (NEGATIVE); CANNABINOID SCREEN,URINE NEGATIVE (NEGATIVE); COCAINE SCREEN,URINE NEGATIVE (NEGATIVE); METHADONE SCREEN, URINE NEGATIVE (NEGATIVE); OPIATE SCREEN,URINE NEGATIVE (NEGATIVE); PHENCYCLIDINE SCREEN,URINE NEGATIVE (NEGATIVE)
[2021-12-29 22:54] LABS: APPEARANCE,URINE CLEAR (CLEAR); BILIRUBIN,URINE NEGATIVE (NEGATIVE); GLUCOSE, URINE (UA) NEGATIVE (NEGATIVE); KETONES,URINE NEGATIVE (NEGATIVE); LEUKOCYTE ESTERASE ,URINE NEGATIVE (NEGATIVE); NITRATE,URINE NEGATIVE (NEGATIVE); OCCULT BLOOD,URINE NEGATIVE (NEGATIVE); PROTEIN,URINE 30-70 mg/dL (NEGATIVE); SPECIFIC GRAVITIY, URINE 1.006 (1.003-1.030); UROBILINOGEN,URINE <=1.0 mg/dL (<=1.0)
[2021-12-30] MEDS ORDERED: SODIUM CHLORIDE 0.9% 500 ML IV ONE (00:40)
[2021-12-30] MEDS: POTASSIUM CHLORIDE 20 MEQ ER TABLET PO PRN ×2 (01:48→09:13)
[2021-12-30] MEDS: AZITHROMYCIN 500 MG/NS 250 ML IV SCH (02:44)
[2021-12-30 06:00] LABS: BASOPHILS % (AUTO) 0.3 % (0.0-2.0); EOSINOPHILS % (AUTO) 0 % (1.0-6.0); HEMATOCRIT 38.2 % (36-46); HEMOGLOBIN 12.1 g/dL (12.0-16.0); LYMPHOCYTES # (AUTO) 0.4 K/uL (1.0-4.8); LYMPHOCYTES % (AUTO) 4.5 % (22.0-44.0); MEAN CORPUSCULAR HEMOGLOBIN 26.7 pg (26.0-34.0); MEAN CORPUSCULAR HGB CONC 31.6 G/dL (31.0-37.0); MEAN CORPUSCULAR VOLUME 84 fL (80-100); MONOCYTES # (AUTO) 0.2 K/uL (0.1-1.0); MONOCYTES % (AUTO) 3.1 % (2.0-9.0); NEUTROPHILS # (AUTO) 7.2 K/uL (1.8-7.7); PLATELET COUNT (AUTO) 159 K/uL (150-450); RED BLOOD CELL COUNT(AUTO) 4.53 MIL/uL (4.00-5.20); RED CELL DISTRIBUTION WIDTH 19.3 % (11.5-14.5)
[2021-12-30 06:15] LABS: CALCIUM, TOTAL 7.6 mg/dL (8.8-10.5); CREATININE 1.18 mg/dL (0.60-1.30); MAGNESIUM 1.5 mg/dL (1.80-2.40); POTASSIUM 3.2 mmol/L (3.5-5.1)
[2021-12-30 06:42] LABS: NEUTROPHILS % (AUTO) 92.1 % (40.0-70.0)
[2021-12-30 07:11] LABS: GLUCOMETER DEV NAME(LOC) 5S.1B; GLUCOSE,POINT OF CARE 267 MG/DL (70-110)
[2021-12-30 07:45] VITALS: BP 112/72
[2021-12-30 08:53] VITALS: BP 108/80
[2021-12-30] MEDS: ASPIRIN 81 MG CHEWABLE TABLET PO SCH (08:54)
[2021-12-30] MEDS: LOSARTAN POTASSIUM 50 MG TABLET PO SCH (08:55)
[2021-12-30] MEDS: FUROSEMIDE 40 MG/4 ML VIAL IVP SCH ×2 (08:55→21:17)
[2021-12-30] MEDS: MethylPREDNISolone SOD SUCC 40 MG/ML VIAL IVP SCH (08:55)
[2021-12-30] MEDS: SPIRONOLACTONE 25 MG TABLET PO SCH (08:55)
[2021-12-30] MEDS: METOPROLOL SUCCINATE 25 MG ER TABLET PO SCH (12:26)
[2021-12-30] MEDS: INSULIN LISPRO 100 UNITS/ML SQ PRN ×3 (12:27→21:19)
[2021-12-30 12:35] VITALS: BP 100/71
[2021-12-30 16:30] VITALS: BP 93/64
[2021-12-30] MEDS ORDERED: MAGNESIUM SULFATE 4 GM/WATER 100 ML IV PRN (18:45)
[2021-12-30] MEDS ORDERED: MAGNESIUM SULFATE 2 GM/WATER 50 ML IV PRN (18:45)
[2021-12-30] MEDS: MAGNESIUM OXIDE 400 MG TABLET PO PRN ×2 (18:51→21:17)
[2021-12-30 20:10] VITALS: BP 113/71
[2021-12-30 20:41] LABS: GLUCOMETER DEV NAME(LOC) 5S.1B; GLUCOSE,POINT OF CARE 359 MG/DL (70-110)
[2021-12-30 20:46] LABS: GLUCOMETER DEV NAME(LOC) 5S.1B; GLUCOSE,POINT OF CARE 430 MG/DL (70-110)
[2021-12-30] MEDS: ATORVASTATIN CALCIUM 40 MG TABLET PO SCH (21:17)
[2021-12-30] MEDS: INSULIN GLARGINE,HUM.REC.ANLOG 100 UNITS/ML SQ SCH (21:20)
[2021-12-30] MEDS: CefTRIAXone 1 GM/DEXTROSE 50 ML IV SCH (22:52)
[2021-12-30 23:54] VITALS: BP 122/62
[2021-12-31] MEDS: AZITHROMYCIN 500 MG/NS 250 ML IV SCH (01:02)
[2021-12-31 05:36] VITALS: BP 116/74
[2021-12-31] MEDS: INSULIN LISPRO 100 UNITS/ML SQ PRN ×4 (05:57→20:33)
[2021-12-31 07:24] VITALS: BP 112/75
[2021-12-31] MEDS: IPRATROPIUM BROMIDE 0.5 MG/2.5 ML NEB SOLUTION NEB PRN ×2 (08:28→17:55)
[2021-12-31] MEDS: ALBUTEROL SULFATE 2.5 MG/0.5 ML NEB SOLUTION NEB PRN ×2 (08:28→17:55)
[2021-12-31] MEDS: FUROSEMIDE 40 MG/4 ML VIAL IVP SCH ×2 (08:38→20:26)
[2021-12-31] MEDS: MethylPREDNISolone SOD SUCC 40 MG/ML VIAL IVP SCH (08:38)
[2021-12-31] MEDS: METOPROLOL SUCCINATE 25 MG ER TABLET PO SCH (08:39)
[2021-12-31] MEDS: LOSARTAN POTASSIUM 50 MG TABLET PO SCH (08:39)
[2021-12-31] MEDS: MAGNESIUM OXIDE 400 MG TABLET PO PRN ×2 (08:39→17:31)
[2021-12-31] MEDS: ASPIRIN 81 MG CHEWABLE TABLET PO SCH (08:39)
[2021-12-31] MEDS: SPIRONOLACTONE 25 MG TABLET PO SCH (08:39)
[2021-12-31 11:10] VITALS: BP 113/82
[2021-12-31] MEDS ORDERED: ALBUTEROL SULFATE HFA 90 MCG/PUFF 8 GM INHALER IH PRN (14:15)
[2021-12-31 15:10] VITALS: BP 115/77
[2021-12-31] MEDS: MethylPREDNISolone SOD SUCC 125 MG/2 ML VIAL IVP SCH (16:29)
[2021-12-31] MEDS: GuaiFENesin/CODEINE [SUGAR FREE] 200-20MG/10 ML SYRUP UDCUP PO PRN (16:29)
[2021-12-31 19:56] VITALS: BP 120/83
[2021-12-31] MEDS: ATORVASTATIN CALCIUM 40 MG TABLET PO SCH (20:26)
[2021-12-31] MEDS: INSULIN GLARGINE,HUM.REC.ANLOG 100 UNITS/ML SQ SCH (20:33)
[2021-12-31 21:56] LABS: GLUCOMETER DEV NAME(LOC) 5S.1B; GLUCOSE,POINT OF CARE 249 MG/DL (70-110)
[2021-12-31 21:56] LABS: GLUCOMETER DEV NAME(LOC) 5S.2B; GLUCOSE,POINT OF CARE 298 MG/DL (70-110)
[2021-12-31 21:56] LABS: GLUCOMETER DEV NAME(LOC) 5S.1B; GLUCOSE,POINT OF CARE 173 MG/DL (70-110)
[2021-12-31 21:56] LABS: GLUCOMETER DEV NAME(LOC) 5S.1B; GLUCOSE,POINT OF CARE 229 MG/DL (70-110)
[2021-12-31 21:56] LABS: GLUCOMETER DEV NAME(LOC) 5S.1B; GLUCOSE,POINT OF CARE 244 MG/DL (70-110)
[2021-12-31] MEDS: CefTRIAXone 1 GM/DEXTROSE 50 ML IV SCH (22:46)
[2022-01-01 00:08] VITALS: BP 109/69
[2022-01-01] MEDS: MethylPREDNISolone SOD SUCC 125 MG/2 ML VIAL IVP SCH ×5 (00:30→23:33)
[2022-01-01] MEDS: AZITHROMYCIN 500 MG/NS 250 ML IV SCH (02:02)
[2022-01-01 05:04] VITALS: BP 126/92
[2022-01-01] MEDS: GuaiFENesin/CODEINE [SUGAR FREE] 200-20MG/10 ML SYRUP UDCUP PO PRN ×2 (05:09→20:24)
[2022-01-01] MEDS: ACETAMINOPHEN 325 MG TABLET PO PRN ×2 (05:09→20:19)
[2022-01-01] MEDS: INSULIN LISPRO 100 UNITS/ML SQ PRN ×4 (06:21→20:38)
[2022-01-01 07:33] VITALS: BP 126/91
[2022-01-01 08:17] LABS: ANION GAP 8 mmol/L (8-16); CALCIUM, TOTAL 7.6 mg/dL (8.8-10.5); CARBON DIOXIDE 30 mmol/L (22-29); CHLORIDE 96 mmol/L (98-107); CREATININE 1.15 mg/dL (0.60-1.30); GLUCOSE,RANDOM 296 mg/dL (70-110); POTASSIUM 3.9 mmol/L (3.5-5.1); SODIUM SERUM 134 mmol/L (136-145); UREA NITROGEN, BLOOD 20 mg/dL (7-18)
[2022-01-01 08:19] LABS: GLOMERULAR FILTR. RATE CALC > 60 mL/min (>60)
[2022-01-01] MEDS: METOPROLOL SUCCINATE 25 MG ER TABLET PO SCH (08:23)
[2022-01-01] MEDS: SPIRONOLACTONE 25 MG TABLET PO SCH (08:23)
[2022-01-01] MEDS: LOSARTAN POTASSIUM 50 MG TABLET PO SCH (08:23)
[2022-01-01] MEDS: ASPIRIN 81 MG CHEWABLE TABLET PO SCH (08:23)
[2022-01-01] MEDS: MethylPREDNISolone SOD SUCC 40 MG/ML VIAL IVP SCH (09:00)
[2022-01-01 11:27] VITALS: BP 115/60
[2022-01-01] MEDS ORDERED: ATOR40TA71 PO (11:49)
[2022-01-01] MEDS ORDERED: SPIR-37 PO (11:49)
[2022-01-01] MEDS ORDERED: ASPI81 PO (11:49)
[2022-01-01] MEDS ORDERED: METO25XL PO (11:49)
[2022-01-01] MEDS ORDERED: LOSA-382 PO (11:49)
[2022-01-01] MEDS ORDERED: METF-1211 PO (11:49)
[2022-01-01] MEDS ORDERED: ALBU8HFA IH (11:49)
[2022-01-01] MEDS ORDERED: FURO40 PO (11:49)
[2022-01-01] MEDS ORDERED: MAGNESIUM OXIDE 400 MG TABLET PO ONE (12:00)
[2022-01-01 15:14] VITALS: BP 119/81
[2022-01-01] MEDS: ALBUTEROL SULFATE 2.5 MG/0.5 ML NEB SOLUTION NEB PRN ×2 (15:53→21:10)
[2022-01-01] MEDS: IPRATROPIUM BROMIDE 0.5 MG/2.5 ML NEB SOLUTION NEB PRN ×2 (15:53→21:10)
[2022-01-01] MEDS: PredniSONE 20 MG TABLET PO SCH (18:27)
[2022-01-01 19:03] LABS: ABG BASE EXCESS 5.1 mmol/L (-2.0-3.0); ABG CARBOXYHEMOGLOBIN 1.2 % (0.0-1.5); ABG HCO3 28.2 mmol/L (22.0-26.0); ABG METHEMOGLOBIN 0.3 % (0.0-1.5); ABG OXYGEN CONTENT 15.4 mL/dL (15.0-23.0); ABG OXYGEN SATURATION 86.5 % (95.0-98.0); ABG OXYHEMOGLOBIN 85.2 % (94.0-100.0); ABG PCO2 45 mmHg (35-45); ABG PH 7.432 (7.35-7.450); ABG TOTAL HEMOGLOBIN 12.9 G/dL (12.0-18.0); SOURCE, BLOOD GAS ARTERIAL; TEMPERATURE, FAHRENHEIT, BG 98.6 FAHREN (96.0-98.6)
[2022-01-01 19:04] LABS: SITE, BLOOD GAS LFT RADIAL
[2022-01-01 19:56] LABS: GLUCOMETER DEV NAME(LOC) 5S.1B; GLUCOSE,POINT OF CARE 205 MG/DL (70-110)
[2022-01-01 19:56] LABS: GLUCOMETER DEV NAME(LOC) 5S.1B; GLUCOSE,POINT OF CARE 261 MG/DL (70-110)
[2022-01-01 20:01] LABS: GLUCOMETER DEV NAME(LOC) 5S.2B; GLUCOSE,POINT OF CARE 312 MG/DL (70-110)
[2022-01-01 20:09] VITALS: BP 122/91
[2022-01-01] MEDS: FUROSEMIDE 40 MG TABLET PO SCH (20:19)
[2022-01-01] MEDS: ATORVASTATIN CALCIUM 40 MG TABLET PO SCH (20:19)
[2022-01-01] MEDS: INSULIN GLARGINE,HUM.REC.ANLOG 100 UNITS/ML SQ SCH (20:37)
[2022-01-01 21:41] LABS: GLUCOMETER DEV NAME(LOC) 5S.1B; GLUCOSE,POINT OF CARE 265 MG/DL (70-110)
[2022-01-01] MEDS: CefTRIAXone 1 GM/DEXTROSE 50 ML IV SCH (22:00)
[2022-01-02 00:13] VITALS: BP 119/77
[2022-01-02] MEDS ORDERED: CefTRIAXone SODIUM 1 GM/VIAL IM ONE (00:30)
[2022-01-02] MEDS ORDERED: LIDOCAINE/PF 1% 2 ML VIAL IM ONE (00:30)
[2022-01-02 03:53] VITALS: BP 114/78
[2022-01-02] MEDS: INSULIN LISPRO 100 UNITS/ML SQ PRN ×4 (06:23→21:41)
[2022-01-02 06:31] LABS: GLUCOMETER DEV NAME(LOC) 5S.1B; GLUCOSE,POINT OF CARE 288 MG/DL (70-110)
[2022-01-02 07:49] VITALS: BP 119/79
[2022-01-02] MEDS: FUROSEMIDE 40 MG TABLET PO SCH ×2 (08:21→21:12)
[2022-01-02] MEDS: AZITHROMYCIN 500 MG TABLET PO SCH (08:21)
[2022-01-02] MEDS: LOSARTAN POTASSIUM 50 MG TABLET PO SCH (08:21)
[2022-01-02] MEDS: SPIRONOLACTONE 25 MG TABLET PO SCH (08:22)
[2022-01-02] MEDS: ASPIRIN 81 MG CHEWABLE TABLET PO SCH (08:22)
[2022-01-02] MEDS: METOPROLOL SUCCINATE 25 MG ER TABLET PO SCH (08:22)
[2022-01-02] MEDS: PredniSONE 20 MG TABLET PO SCH (08:22)
[2022-01-02] MEDS ORDERED: FUROSEMIDE 20 MG/2 ML VIAL IVP ONE (08:45)
[2022-01-02 10:47] LABS: ANION GAP 1 mmol/L (8-16); CALCIUM, TOTAL 8.3 mg/dL (8.8-10.5); CARBON DIOXIDE 33 mmol/L (22-29); CHLORIDE 95 mmol/L (98-107); CREATININE 1.08 mg/dL (0.60-1.30); GLOMERULAR FILTR. RATE CALC > 60 mL/min (>60); GLUCOSE,RANDOM 361 mg/dL (70-110); POTASSIUM 4.6 mmol/L (3.5-5.1); SODIUM SERUM 129 mmol/L (136-145); UREA NITROGEN, BLOOD 21 mg/dL (7-18)
[2022-01-02 11:09] VITALS: BP 118/95
[2022-01-02 15:37] VITALS: BP 126/96
[2022-01-02 18:41] LABS: GLUCOMETER DEV NAME(LOC) 5S.2B; GLUCOSE,POINT OF CARE 354 MG/DL (70-110)
[2022-01-02 20:51] LABS: GLUCOMETER DEV NAME(LOC) 5S.1B; GLUCOSE,POINT OF CARE 381 MG/DL (70-110)
[2022-01-02 21:01] VITALS: BP 118/47
[2022-01-02] MEDS ORDERED: SODIUM CHLORIDE 0.9% 250 ML IV ONE (21:09)
[2022-01-02] MEDS: BENZONATATE 100 MG CAPSULE PO SCH (21:12)
[2022-01-02] MEDS: CefTRIAXone 1 GM/DEXTROSE 50 ML IV SCH (21:12)
[2022-01-02] MEDS: ATORVASTATIN CALCIUM 40 MG TABLET PO SCH (21:12)
[2022-01-02] MEDS: ACETAMINOPHEN 325 MG TABLET PO PRN (21:13)
[2022-01-02] MEDS: INSULIN GLARGINE,HUM.REC.ANLOG 100 UNITS/ML SQ SCH (21:15)
[2022-01-02 21:16] LABS: GLUCOMETER DEV NAME(LOC) 5S.2B; GLUCOSE,POINT OF CARE 395 MG/DL (70-110)
[2022-01-03] MEDS: GuaiFENesin/CODEINE [SUGAR FREE] 200-20MG/10 ML SYRUP UDCUP PO PRN (00:36)
[2022-01-03 01:07] VITALS: BP 139/90
[2022-01-03 05:54] VITALS: BP 117/87
[2022-01-03] MEDS: INSULIN LISPRO 100 UNITS/ML SQ PRN ×3 (06:46→17:30)
[2022-01-03 06:51] LABS: GLUCOMETER DEV NAME(LOC) 5S.2B; GLUCOSE,POINT OF CARE 195 MG/DL (70-110)
[2022-01-03 07:56] VITALS: BP 132/98
[2022-01-03] MEDS: AZITHROMYCIN 500 MG TABLET PO SCH (09:03)
[2022-01-03] MEDS: LOSARTAN POTASSIUM 50 MG TABLET PO SCH (09:03)
[2022-01-03] MEDS: ASPIRIN 81 MG CHEWABLE TABLET PO SCH (09:03)
[2022-01-03] MEDS: METOPROLOL SUCCINATE 25 MG ER TABLET PO SCH (09:03)
[2022-01-03] MEDS: BENZONATATE 100 MG CAPSULE PO SCH (09:03)
[2022-01-03] MEDS: PredniSONE 20 MG TABLET PO SCH (09:03)
[2022-01-03] MEDS: FUROSEMIDE 40 MG TABLET PO SCH (09:03)
[2022-01-03] MEDS: SPIRONOLACTONE 25 MG TABLET PO SCH (09:03)
[2022-01-03 11:03] VITALS: BP 120/92
[2022-01-03 15:58] VITALS: BP 156/71
[2022-01-04 06:46] LABS: GLUCOMETER DEV NAME(LOC) 5S.2B; GLUCOSE,POINT OF CARE 213 MG/DL (70-110)
[2022-01-04 06:46] LABS: GLUCOMETER DEV NAME(LOC) 5S.2B; GLUCOSE,POINT OF CARE 386 MG/DL (70-110)
== END 2022-01-03 20:00 | disposition home or self-care (01) | DRG 194 ==
LOC: EMS 19:44 → 5N 22:39
PROVIDERS: ADMIT Internal Medicine; ATTEND Internal Medicine
PROC: 5A09357 Assistance with Respiratory Ventilation, Less than 24 Consecutive Hours, Continuous Positive Airway Pressure (ICD-10-PCS; principal; 2021-12-29)
PROC: 5A09357 Assistance with Respiratory Ventilation, Less than 24 Consecutive Hours, Continuous Positive Airway Pressure (ICD-10-PCS; 2021-12-30)
PROC: 5A09357 Assistance with Respiratory Ventilation, Less than 24 Consecutive Hours, Continuous Positive Airway Pressure (ICD-10-PCS; 2022-01-02)
DX: I11.0 Hypertensive heart disease with heart failure (principal); J96.01 Acute respiratory failure with hypoxia; I50.23 Acute on chronic systolic (congestive) heart failure; E11.9 Type 2 diabetes mellitus without complications; Z20.822 Contact with and (suspected) exposure to COVID-19; E66.01 Morbid (severe) obesity due to excess calories; E78.5 Hyperlipidemia, unspecified; I42.8 Other cardiomyopathies; J43.9 Emphysema, unspecified; Z82.49 Family history of ischemic heart disease and other diseases of the circulatory system; Z87.891 Personal history of nicotine dependence; Z79.899 Other long term (current) drug therapy; Z83.3 Family history of diabetes mellitus; Z91.14 Patient's other noncompliance with medication regimen; Z95.810 Presence of automatic (implantable) cardiac defibrillator; Z88.8 Allergy status to other drugs, medicaments and biological substances; Z68.38 Body mass index [BMI] 38.0-38.9, adult; Z79.82 Long term (current) use of aspirin
CPT/HCPCS: 71045; 71250; 80048; 80053; 81003; 82040; 82550; 82805; 82962; 83605; 83735; 83880; 83930; 83935; 84132; 84300; 84484; 84702; 85025; 85610; 85730; 87040; 93005; 93306; 94640; 94660; 99285; J0456; J0696; J1644; J1815; J1940; J2270; J2920; J2930; J3490; J7040; J7050; Q9967; 36415-L1; 36415-TC; J7613; U0003